=== PATIENT | female | born 1955 | race Caucasian/White ===

== ENCOUNTER 2016-07-15 06:43 | Day surgery (SDC) | payer BC ==
[2016-07-10 17:43] LABS: HEMATOCRIT 39.3 % (36.0-48.0); HEMOGLOBIN 13.4 g/dL (12.0-16.0)
[2016-07-10 17:50] LABS: PARTIAL THROMBO TIME 28.5 SEC (22.5-37.2); PROTIME (NOT ORD) 13.4 SEC (12.0-14.5)
[~2016-07-15 06:43] MED LIST: ASMANEX100 INH; CALTRA600D PO; LEXAPRO10 PO; SINGULAIR1 PO; STIOLTO RESPIMAT4 GM INH; TRAZ100 PO
== END 2016-07-15 23:59 | disposition home or self-care (01) ==
LOC: SDC 06:43
PROVIDERS: Otolaryngology
PROC: 09SM0ZZ Reposition Nasal Septum, Open Approach (ICD-10-PCS; 2016-07-15)
PROC: 09SL0ZZ Reposition Nasal Turbinate, Open Approach (ICD-10-PCS; 2016-07-15)
PROC: 0W3Q0ZZ Control Bleeding in Respiratory Tract, Open Approach (ICD-10-PCS; principal; 2016-07-15 07:45)
DX: J34.2 Deviated nasal septum (principal); J34.3 Hypertrophy of nasal turbinates; J34.89 Other specified disorders of nose and nasal sinuses; R04.0 Epistaxis; R05 Cough; R51 Headache; J32.2 Chronic ethmoidal sinusitis; J45.909 Unspecified asthma, uncomplicated; G47.33 Obstructive sleep apnea (adult) (pediatric); K21.9 Gastro-esophageal reflux disease without esophagitis; Z90.710 Acquired absence of both cervix and uterus
CPT/HCPCS: 85014; 85018; 85610; 85730; 88300; 93005; A9270-GY; J0690; J2250; J2370; J2405; J2710; J3010